=== PATIENT | male | born 1965 | race Caucasian/White ===

== ENCOUNTER 2025-01-24 10:11 | Outpatient (CLI) | payer OTHER, SELFPAY ==
--- NOTE | 2025-01-24 10:15 | CA_ITS ---
APPROVED REPORT EXAM: Comprehensive 2D, Doppler, and color-flow Echocardiogram Deputy Clerk: Rita Castellon RVT Ht: 6 ft 2 in Wt: 280lbs BSA: 2.51 BP: 133/91 mmHg Indications: LVH 2D Dimensions LA Volume 42.30 mL LA Volume Index 16.85 mL/m2 (M/F) 16-34 M-Mode Dimensions RVDd 3.99 cm (0.9-2.6) LA Diam 3.58 cm (1.9-4.0) LVDd 4.74 cm (3.5-5.7) LVDs 3.10 cm (3.5-5.7) IVSd 1.13 cm (0.6-1.1) PWd 0.61 cm (0.6-1.1) EF (Teich) 63.70% FS 34.60% EDV (Teich) 104.40 mL TAPSE 2.21 (<1.7) ESV (Teich) 37.90 mL LV Diastology E Decel Time 300 (160-240 msec) E/A Ratio 0.8 Aortic Valve CHELA Index 1.35 cm2/m2 AoV Peak Jean Paul. 85.0 (50-130 cm/s) AO Peak GR. 2.90 mmHg AO Mean GR. 1.60 (<5 mmHg) AO VTI 18.1 (18-25 cm) CHELA (VTI) 3.48 (2.5-4.5 cm2) Mitral Valve MV E Max Jean Paul. 60.0 (40-130 cm/s) MV A Velocity 73.0 (40-130 cm/s) E/A Ratio 0.82 MV PHT 88.0 ms Pulmonary Valve PV Peak Velocity 68.0 (50-150 cm/s) Left Ventricle The left ventricle is normal size. Left ventricular systolic function is normal. The left ventricular ejection fraction is within the normal range. There is increased left ventricular wall thickness. Proximal septal thickening is present. There is normal LV segmental wall motion. The left ventricular diastolic function is indeterminate. LVEF is 55%. Right Ventricle The right ventricle is mildly to moderately dilated. The right ventricular systolic function is mildly reduced. Atria The left atrium size is normal. The right atrium size is normal. There is no color Doppler evidence of interatrial shunt. Aortic Valve The aortic valve is mildly thickened. There is no hemodynamically significant aortic valvular stenosis. Trace aortic regurgitation is present. Mitral Valve The mitral valve is normal in structure. No evidence of mitral valve stenosis. Mild mitral regurgitation is present. Tricuspid Valve The tricuspid valve leaflets are thin and pliable. Trace tricuspid regurgitation. There is insufficient TR jet to estimate RVSP. Pulmonic Valve The pulmonary valve is grossly normal in structure. Trace pulmonic valve regurgitation is present. Great Vessels The aortic root is normal in size. The ascending aorta is borderline dilated, measuring 3.7 cm in diameter. IVC is normal in size and collapses >50% with inspiration. Pericardium There is no pericardial effusion. Other Information Study Quality: Technically Difficult Conclusion Technically difficult study. Normal LV systolic function. Mild to moderate RV dilation with mild reduction in RV function. Mild MR. Ascending aorta is borderline dilated, measuring 3.7 cm in diameter. Electronically signed by : Mildred Musa MD 01/25/2025 12:41:49
--- OUTSIDE RECORDS SUMMARY | 2025-01-24 10:15 | XMS_ITS | Clinical Summary ---
[facility] Organization [facility] Address [address] [place] [address] Care Team Providers Care Loan Underwriter Name Role Phone Sheri Rubalcava APRN Primary Care Provider Unava ilable Allergies No known active allergies Medications atenolol (TENORMIN) 25 MG tablet Take 1 tablet by mouth Daily. 1 9 Active losartan (COZAAR) 100 MG tablet Take 1 tablet by mouth Daily. 5 9 Active aspirin 81 MG EC tablet Take 1 tablet by mouth Daily. Active sodium-potassiu m-magnesium sulfates (Suprep Bowel Prep Kit) 17.5-3.13-1.6 GM/177ML solution oral solution Take 1 bottle by mouth Take As Directed. Follow instructions that were mailed to your home. If you didn't receive these call [phone]. 354 mL 4 Active sodium-potassiu m-magnesium sulfates (Suprep Bowel Prep Kit) 17.5-3.13-1.6 GM/177ML solution oral solution Take 1 bottle by mouth Take As Directed. 354 mL 5 Active Active Problems Problem Noted Date Diagnosed Date Colon cancer screening 10/20/2019 Overview (10/20/2019): Added automatically from request for surgery [id number] Chronic left shoulder pain 08/03/2019 Assessment & Plan (08/03/2019 5:22 PM EDT): Will start with x-ray and diclofenac for pain relief. Advised to continue stretches and exercises at home. I do not feel that it is inman for the patient to be out doing PT regularly at this time given the COVID-19 pandemic and he will have the same benefit with exercises at home. If x-ray is normal and no improvement, will obtain MRI of the left shoulder. Family History Medical History Relation Name Comments Diabetes Father Heart attack Father Hyperlipidemia Father Stroke Father Colon cancer Mother Colon polyps Mother Thyroid disease Mother Esophageal cancer Neg Hx Relation Name Status Comments Father Mother Alive Social History Tobacco Use Types Packs/Day Years Used Date Smoking Tobacco: Never Smokeless Tobacco: Never Tobacco Cessation:Counseling Given: Not Answered Alcohol Use Standard Drinks/Week Comments Yes 0 (1 standard drink = 0.6 oz pur e alcohol) social AUDIT-C Answer Date Recorded Q1: How often do you have a drink containing alc ohol? Never 03/20/2020 Average Number of Drinks Not on file 020 Frequency of Binge Drinking Not on file 06/2019 PHQ-2 Answer Date Recorded Retired Total Score 0 08/03/2019 Abuse Screen Answer Date Recorded Unsafe at Home or Work/School Not on file Feels Threatened by Someone? Not on file 04/2023 Does Anyone Keep You from Co ntacting Others or Doint Things Outside the Home? Not on file 02/27/2023 Physical Sign of Abuse Present Not on file 1 Housing Stability Answer Date Recorded Current Living Arrangements Not on file 02/16 Potentially Unsafe Housing Conditions Not on bjorn e 02/27/2023 Family and Community Support Answer Peter e Recorded Help with Day-to-Day Activities Not on file 02/27/2023 Lonely or Isolated Not on file 02/27/2023 Employment Answer Date Recorded Do you want help finding or keeping work or a pao b? Not on file 02/27/2023 Disabilities Answer Date Recorded Concentrating, Remembering, or Making Decisions Difficulty Not on file 02/27/2023 Doing Errands Independently Difficulty Not on fi le 02/27/2023 Education Answer Date Recorded Help with school or training? Not on file Preferred Language Not on file 02/27/2023 Sex and Gender Information Value Date Recorded Sex Assigned at Not on file Legal Sex Male 11:19 AM EST Gender Identity Not on file Sexual Orientation Not on file Last Filed Vital Signs Vital Sign Reading Time Taken Comments Blood Pressure 122/74 12/23/2023 1:06 PM EDT Pulse 72 12/23/2023 1:06 PM EDT Temperature 36.7 C (98 F) 12/23/2023 1:06 PM EDT Respiratory Rate 16 11/08/2019 11:55 AM EDT Oxygen Saturation 98% 12/23/2023 1:06 PM EDT Inhaled Oxygen Concentration - - Weight 138 kg (305 lb) 03/20/2020 11:18 AM EST Height 188 cm (6' 2 ) 12/23/2023 1:06 PM EDT Body Mass Index 39.16 03/20/2020 11:18 AM EST Plan of Treatment Health Maintenance Due Date Last Done Comments TDAP/TD VACCINES (1 - Tdap) 08/08/1986 COLOGUARD 08/08/2012 COLON CANCER SCREENING 5 YEA R SIGMOIDOSCOPY 08/08/2012 CT COLONOGRAPHY 08/08/2012 FECAL OCCULT BLOOD TEST 08/08/2012 FIT Testing (1 year) 08/08/2012 Pneumococcal Vaccine 50+ (1 of 1 - PCV) 08/08/2017 ZOSTER VACCINE (1 of 2) 08/08/2017 ANNUAL PHYSICAL 04/26/2019 HEPATITIS C SCREENING 04/26/2019 COVID-19 Vaccine (2 - season) 01/17/202509/2020 INFLUENZA VACCINE 02/16/2025 COLONOSCOPY 07/06/2034 07/06/2024, 10/18, 11/08/2019 COLORECTAL CANCER SCREENING 07/06/2034 Procedures Procedure Name Priority Date/Time Associated Diagnosis Comments SCANNED - COLONOSCOPY 07/06/2024 from Last 3 Months or Most Recently Relevant to Health Maintenance Results * Colonoscopy, Scan (07/06/2024) us Mitchell Odom MD CHART REVIEW TABS Final Result from Last 3 Months or Most Recently Relevant to Health Maintenance Insurance [facility] Care Teams Loan Underwriter Relationship Specialty Start Date End Date Sheri Rubalcava APRN PCP - General Nurse Practitioner 02/24/24
--- OUTSIDE RECORDS SUMMARY | 2025-01-24 10:15 | XMS_ITS | Clinical Summary ---
Author Organization [facility] Address [address] [place] [address], [address] [place] [address] Care Team Providers Care Building Drafting Officer Name Role Phone Unavailable Primary Care Provider Unavailabl e Social History Tobacco Use Types Packs/Day Years Used Date Smoking Tobacco: Never Assessed Sex and Gender Information Value Date Recorded Sex Assigned at Not on file Legal Sex Male 11:50 AM EDT Gender Identity Not on file Sexual Orientation Not on file Plan of Treatment Not on file
== END 2025-01-24 23:59 | disposition home or self-care (01) ==
LOC: RT 10:14
PROVIDERS: Visit Provider Physician Assistant
DX: I08.0 Rheumatic disorders of both mitral and aortic valves (principal); I77.810 Thoracic aortic ectasia; I11.9 Hypertensive heart disease without heart failure
CPT/HCPCS: 93306

== ENCOUNTER → 2025-04-05 10:16 | Outpatient (CLI) | payer OTHER, SELFPAY | LOC: SL 10:17 | PROVIDERS: Visit Provider Physician Assistant | DX: G47.33 Obstructive sleep apnea (adult) (pediatric) (principal); G47.36 Sleep related hypoventilation in conditions classified elsewhere | CPT/HCPCS: G0399 ==